=== PATIENT | female | born 1980 | race Caucasian/White ===

== ENCOUNTER 2017-05-21 18:35 | Observation (INO) | payer BC ==
[~2017-05-21] VITALS: Ht 154.9 cm; Wt 84.8 kg
[2017-05-21] MEDS ORDERED: SODIUM CHLORIDE 0.9% 1,000 ML IV NR (19:19)
[2017-05-21] MEDS ORDERED: ACETAMINOPHEN 500MG TABLET PO NR (19:19)
[2017-05-21] MEDS ORDERED: INSU3INS6 SQ (23:49)
== END 2017-05-21 23:52 | disposition home or self-care (01) ==
LOC: L&D 18:35
PROVIDERS: ADMIT Internal Medicine; ATTEND Specialist
DX: O26.893 Other specified pregnancy related conditions, third trimester (principal); R10.30 Lower abdominal pain, unspecified; Z3A.28 28 weeks gestation of pregnancy
CPT/HCPCS: 76805; 76818; 82962; 96360; 96361; G0378; J7030; J7070